=== PATIENT | female | born 2000 | race Hispanic/Latino ===

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

== ENCOUNTER 2022-05-17 09:24 | Emergency (ER) | payer OTHER | END 2022-05-17 10:48 | disposition home or self-care (01) | LOC: NAV ERS 09:24 | DX: J02.0 Streptococcal pharyngitis (principal) | CPT/HCPCS: 87430; 99283 ==

== ENCOUNTER 2023-08-29 20:47 | Emergency (ER) | payer OTHER ==
[2023-08-29] MEDS ORDERED: Ondansetron PF 4 MG/2 ML Vial ONE (21:07)
[2023-08-29] MEDS ORDERED: Sodium Chloride 0.9% 1,000 ML ONE ×2 (21:08→21:44)
[2023-08-29 21:18] LABS: #Basophils 0.2 thou/uL (0.0-0.2); #Eosinphils 0.1 thou/uL (0.0-0.7); #Lymphocytes 2.9 thou/uL (1.20-3.40); #Monocytes 0.7 thou/uL (0.11-0.59); #Neutrophils 8.4 thou/uL (1.40-6.50); %Basophils 1.3 % (0.0-1.0); %Eosinophils 1.2 % (0.0-10.0); %Lymphocytes 23.5 % (21.0-51.0); %Monocytes 5.4 % (0.0-10.0); %Neutrophils 68.7 % (42.0-75.0); Hematocrit 45.2 % (36.0-47.0); Hemoglobin 13.8 g/dL (12.0-16.0); Mean Corpuscular HGB CONC 30.4 g/dL (32.0-36.0); Mean Corpuscular Hemoglobin 28.3 pg (27.0-31.0); Mean Corpuscular Volume 92.9 fl (78.0-98.0); Mean Platelet Volume 8.2 fL (7.4-10.4); Platelet Count 272 10x3/uL (130-400); Red Blood Cell (RBC) Count 4.87 mill/uL (4.20-5.40); White Blood Cell (WBC) Count 12.3 10x3/uL (4.8-10.8)
[2023-08-29] MEDS ORDERED: Sulfameth/Trimethoprim DS 800-160mg TAB ONE (21:34)
[2023-08-29] MEDS ORDERED: Naproxen 500 MG TAB ONE (21:35)
[2023-08-29 21:36] LABS: ALT (SGPT) 23 U/L (8-55); AST (SGOT) 22 U/L (5-34); Albumin 4.5 g/dL (3.5-5.0); Alkaline Phosphatase 117 U/L (40-110); Anion Gap 19 mmol/L (10-20); BUN (Urea Nitrogen) 8 mg/dL (7.0-18.7); Bilirubin, Total 0.2 mg/dL (0.2-1.2); Calc. Creatinine Clearance 0 mL/min (70-130); Calcium 9.1 mg/dL (7.8-10.44); Carbon Dioxide 18 mmol/L (22-29); Chloride 109 mmol/L (98-107); Estimated GFR 122; Globulin 3.7 g/dL (2.4-3.5); Glucose 115 mg/dL (70-105); Lipase 25 U/L (8-78); Potassium 3.9 mmol/L (3.5-5.1); Protein, Total 8.2 g/dL (6.0-8.3); Sodium 142 mmol/L (136-145)
[2023-08-29] MEDS ORDERED: Pantoprazole 40 MG VIAL ONE (21:44)
[2023-08-29] MEDS ORDERED: Acetaminophen 500 MG TAB ONE (21:44)
== END 2023-08-29 22:28 | disposition home or self-care (01) ==
LOC: NAV ERS 20:47
DX: F10.129 Alcohol abuse with intoxication, unspecified (principal)
CPT/HCPCS: 80053; 80307; 83690; 85025; 96361; 96374; 96375; C9113; J2405; J7050